=== PATIENT | male | born 1950 | race Caucasian/White ===

== ENCOUNTER 2016-07-26 15:56 | Emergency (ER) | payer OTHER, MEDICARE ==
[~2016-07-26] VITALS: Ht 167.6 cm; Wt 117.9 kg
[~2016-07-26 15:56] MED LIST: ALLERGY RELIEF4 M1 PO; ANTIVERT/2525 M1 PO; ASPIRIN-DIPYRI1 EACH PO; CALCIUM 250+D1 EACH PO; CLARITIN10 MG PO; CLOPIDOGREL75 MG PO; CPAP; CYCLOBENZAPRINE10 MG PO; DELTASONE1 MG PO; DELTASONE2.5 MG PO; DOXYCYCLINE MO100 M1 PO; DRISDOL50000 IU PO; FISH OIL500 M1 PO; FLOMAX0.4 MG PO; GLUCOTROL XL5 MG PO; IBU800 M1 PO; IRON325 M3 PO; LASIX20 MG PO; LEVOTHYROXIN0.025 MG PO; LYRICA100 M1 PO; Lopressor25 MG PO; MEDROL DOSEPAK4 MG PO; METRONIDAZOLE0.752 T; NAPROSYN500 MG PO; NORCO 5-325 TA1 EACH PO; NORVASC5 MG PO; PRAVASTATIN SOD80 MG PO; PROSCAR5 M1 PO; TENSION HEADAC1 EACH PO; ZESTRIL10 MG PO; ZESTRIL20 MG PO; ZYLOPRIM100 MG PO
[2016-07-26 16:44] LABS: BASO % 0.3 % (0.0-1.0); EOS # 0.3 10*3/uL (0.0-0.4); EOS % 4.3 % (1.0-4.0); HEMATOCRIT 46.5 % (42.0-52.0); HEMOGLOBIN 16.1 g/dl (14.0-18.0); LYMPH # 1.2 10*3/uL (1.3-4.4); LYMPH % 15.8 % (27.0-41.0); MEAN CELL VOLUME 95.1 fl (80.0-94.0); MEAN CORPUSCULAR HGB 32.9 pg (27.0-31.0); MEAN CORPUSCULAR HGB CONC 34.6 g/dl (33.0-37.0); MONO # 0.4 10*3/uL (0.1-1.0); MONO % 5.6 % (3.0-9.0); NEUT # 5.7 10*3/uL (2.3-7.9); NEUT % 73.6 % (47.0-73.0); PLATELET COUNT AUTOMATED 278 10*3/uL (130-400); RED BLOOD COUNT 4.89 10*6/uL (4.50-5.90); RED CELL DISTRI WIDTH 13.9 % (0-14.5); WHITE BLOOD COUNT 7.7 10*3/uL (4.8-10.8)
[2016-07-26 16:58] LABS: ALKALINE PHOSPHATASE 101 U/L (45-117); BILIRUBIN, TOTAL 0.8 mg/dl (0.2-1.0); BUN 27 mg/dl (7-24); CARBON DIOXIDE 21 mmol/L (21-32); CHLORIDE 104 mmol/L (98-107); EST GLOM FILT AFRICAN AMERICAN > 60 ml/min; GLUCOSE 175 mg/dL (65-99); POTASSIUM 4.1 mmol/L (3.5-5.1); SGOT/AST 44 IU/L (3-35); SGPT/ALT 40 U/L (12-78); SODIUM 136 mmol/L (136-145); TOTAL PROTEIN 8.4 gm/dL (6.4-8.2)
[2016-07-26 17:16] LABS: BILIRUBIN NEGATIVE (NEGATIVE); BLOOD TRACE-LYSED (NEGATIVE); CLARITY CLEAR (CLEAR); COLOR YELLOW (YELLOW); GLUCOSE TRACE (NEGATIVE); KETONE NEGATIVE (NEGATIVE); LEUKO ESTERASE NEGATIVE (NEGATIVE); NITRITE NEGATIVE (NEGATIVE); PROTEIN TRACE (NEGATIVE); SPECIFIC GRAVITY 1.025 (1.005-1.030); UROBILINOGEN 0.2 E.U./dl (0.2-1.0)
[2016-07-26 17:22] LABS: RBC 0-2 rbc/hpf (0-2)
[2016-07-26 17:23] LABS: URINE REFLEX COMMENT NO (NO)
[2016-07-26] MEDS ORDERED: LOMOTIL 0.025 M1 TA1 PO (19:07)
== END 2016-07-26 19:18 | disposition home or self-care (01) ==
LOC: ED 15:56
PROVIDERS: Physician Assistant
DX: R19.7 Diarrhea, unspecified (principal); Z79.899 Other long term (current) drug therapy

== ENCOUNTER 2016-08-06 16:54 | Inpatient (IN) | payer OTHER ==
[~2016-08-06] VITALS: Ht 167.6 cm; Wt 112.7 kg
--- NOTE | ~2016-08-06 | O ---
[place], [place] OPERATIVE NOTE NAME: KEON THOMAS UNIT #: [id number] ROOM: 403 DOCTOR: NASREEN ACOSTA MD BIRTHDATE: [birth year] DOS: HISTORY OF PRESENT ILLNESS: The patient has presented with nausea, vomiting, undergoing investigation. Epigastric distress. PROCEDURE: Today's procedure part of investigation is panendoscopy plus biopsy and bezoar fracture. PREMEDICATION: Versed and Diprivan. SCOPE: Olympus forward-viewing gastroscope Q10 video. REPORT: After putting the patient in the left lateral position and after application of lubricant to the scope, the scope was introduced. Thereafter, under direct visualization, I advanced through the length of the esophagus without difficulty. Small hiatal hernia was noticed. Gastric pouch was entered. In greater curvature, there is elongated gastric bezoar which is food bezoar with pedicles attached to the greater curvature was identified. The pedicle was fractured and bezoar mobilized to free position. Pyloric ring was entered. Duodenal bulb, second and third part within normal limits withdrawn. Biopsy from antrum was obtained from gastritis. The patient extubated, tolerated procedure well. IMPRESSION: Gastric bezoar secondary to a diabetic gastroparesis, gastritis, status post biopsy. PLAN ON DISCUSSION: We are going to keep him on PPI. We are going to organize addition of prokinetic starting from Reglan 2.5 mg daily. We are going to give him a couple of days of clear liquid to allow the gastric pouch to dispose of retention that already has and by then gastric motility has been improved under the influence of the metoclopramide and then we are going to keep him on soft diabetic diet, perhaps it would be suffice to be managed with 1600 ADA soft low residue. [place], [place] OPERATIVE NOTE NAME: KEON THOMAS UNIT #: [id number] ROOM: 403 DOCTOR: NASREEN ACOSTA MD BIRTHDATE: [birth year] NASREEN ACOSTA MD CM:OPRECORD:OPERATIVE NOTE [id number] NASREEN ACOSTA MD 08/08/16 1341 interface
--- NOTE | ~2016-08-06 | O ---
[place], [place] OPERATIVE NOTE NAME: KEON THOMAS UNIT #: [id number] ROOM: 403 DOCTOR: NASREEN ACOSTA MD BIRTHDATE: [birth year] DOS: HISTORY OF PRESENT ILLNESS: The patient has presented with chief complaint of nausea, vomiting, diarrhea several times visit to the Emergency Room. The patient had to be admitted for definitive workup. PAST MEDICAL HISTORY: Associated morbid obesity, cerebrovascular accident, gout. PAST SURGICAL HISTORY: Hyperlipidemia, hypertension, diabetes mellitus, BPH. SOCIAL HISTORY: Nonsmoker, nonalcohol consumer. FAMILY HISTORY: Noncontributory. ALLERGIES: No medication. MEDICATION: List has been reviewed. The patient was found to be on glipizide b.i.d. and this could be the culprit as well. PROCEDURE: Today's procedure part of investigation is panendoscopy and colonoscopy. PREMEDICATION: Versed and Diprivan. SCOPE: Olympus forward-viewing colonoscope 10L video. REPORT: After putting the patient in the left lateral position and after application of lubricant to rectal pouch and digital examination. Scope was introduced; thereafter, under direct visualization, advanced through the length of colon without difficulty. Base of the cecum explored, appendiceal orifice identified, and ileocecal valve was defined. Sessile polypoid lesion in splenic flexure with piecemeal polypectomy was removed. Diverticulosis of mild degree was identified, mostly expressed in the left side of the colon. Air was suctioned out. The patient was extubated, tolerated procedure well. IMPRESSION: Diverticulosis, sessile polypoid lesion in splenic flexure, status post piecemeal polypectomy. PLAN AND DISCUSSION: At this time, as an etiology for his diarrhea we are going to consider Glucotrol to be the culprit. Glucotrol is going to be removed. DiaBeta is going to be added 2.5 mg daily and his blood sugar is going to be monitored if needed. We are going to increase to 5 mg in 1 week or so. [place], [place] OPERATIVE NOTE NAME: KEON THOMAS UNIT #: [id number] ROOM: 403 DOCTOR: NASREEN ACOSTA MD BIRTHDATE: [birth year] NASREEN ACOSTA MD CM:SAMMY:OPERATIVE NOTE 1116 40 NASREEN ACOSTA MD 08/08/16 1341 interface
[~2016-08-06 16:54] MED LIST changes: +LOMOTIL 0.025 M1 TA1 PO
[2016-08-06 17:21] VITALS: BP 63/29
[2016-08-06 17:31] VITALS: BP 101/47
[2016-08-06 18:10] LABS: HEMATOCRIT 48.8 % (42.0-52.0); HEMOGLOBIN 16.9 g/dl (14.0-18.0); MEAN CELL VOLUME 95.7 fl (80.0-94.0); MEAN CORPUSCULAR HGB 33.1 pg (27.0-31.0); MEAN CORPUSCULAR HGB CONC 34.6 g/dl (33.0-37.0); MEAN PLATELET VOLUME 9.3 fl (9.6-12.3); PLATELET COUNT AUTOMATED 243 10*3/uL (130-400); RED CELL DISTRI WIDTH 13.4 % (0-14.5)
[2016-08-06 18:24] LABS: PROTHROMBIN TIME 10.6 SECONDS (9.0-12.4)
[2016-08-06 18:25] LABS: ALBUMIN 4.2 gm/dl (3.1-4.5); ALKALINE PHOSPHATASE 92 U/L (45-117); BILIRUBIN, TOTAL 0.6 mg/dl (0.2-1.0); BUN 15 mg/dl (7-24); C-REACTIVE PROTEIN 0.71 MG/DL (0-0.3); CARBON DIOXIDE 26 mmol/L (21-32); CHLORIDE 105 mmol/L (98-107); CKMB 2.3 ng/ml (0.5-3.6); CPK 119 U/L (39-308); EST GLOM FILT AFRICAN AMERICAN > 60 ml/min; GLUCOSE 146 mg/dL (65-99); POTASSIUM 4.4 mmol/L (3.5-5.1); SGOT/AST 42 IU/L (3-35); SGPT/ALT 43 U/L (12-78); SODIUM 143 mmol/L (136-145); TROPONIN I < 0.015 ng/ml (<0.045)
[2016-08-06 18:35] VITALS: BP 124/57
[2016-08-06 18:37] LABS: ATYPICAL LYMPHS 1 % (0-0); EOSINOPHIL # 0.6 10*3/uL (0-0.4); EOSINOPHILS 2 % (1-4); LYMPHOCYTE # 2.8 10*3/uL (1.3-4.4); MONOCYTE # 0.3 10*3/uL (0.1-1.0); NEUTROPHIL # 27.3 10*3/uL (2.3-7.9); NEUTROPHILS 88 % (47-73); TOTAL CELLS COUNTED 100 #CELLS
[2016-08-06 18:38] LABS: PLATELET SUFFICIENCY NORMAL (NORMAL); POLYCHROMASIA SLIGHT
[2016-08-06 18:58] VITALS: BP 161/60
[2016-08-06 19:38] VITALS: BP 162/68
[2016-08-06 20:03] LABS: LA>2 REFLEX 2 HR DRAW NOW
[2016-08-06 20:25] LABS: LA>2 RFLX FOLLOW UP AT 2 HRS 2.3 mmol/L (0.4-2.0)
[2016-08-06 20:30] VITALS: BP 172/64
[2016-08-06 22:14] LABS: LA>2 REFLEX 4 HR DRAW NOW
[2016-08-07] VITALS: BP 136/69
[2016-08-07 00:45] LABS: BASO # 0.1 10*3/uL (0.0-0.1); BASO % 0.4 % (0.0-1.0); EOS # 1.2 10*3/uL (0.0-0.4); EOS % 8.6 % (1.0-4.0); IG # 0.1 10*3/uL (0.0-0.1); LYMPH # 1.6 10*3/uL (1.3-4.4); LYMPH % 11.5 % (27.0-41.0); MEAN CELL VOLUME 94.8 fl (80.0-94.0); MEAN CORPUSCULAR HGB 32.9 pg (27.0-31.0); MEAN CORPUSCULAR HGB CONC 34.7 g/dl (33.0-37.0); MEAN PLATELET VOLUME 9.2 fl (9.6-12.3); MONO # 0.6 10*3/uL (0.1-1.0); MONO % 3.9 % (3.0-9.0); NEUT # 10.7 10*3/uL (2.3-7.9); NEUT % 75.1 % (47.0-73.0); PLATELET COUNT AUTOMATED 178 10*3/uL (130-400); RED BLOOD COUNT 4.23 10*6/uL (4.50-5.90); RED CELL DISTRI WIDTH 13.5 % (0-14.5); WHITE BLOOD COUNT 14.3 10*3/uL (4.8-10.8)
[2016-08-07 00:46] LABS: HEMATOCRIT 40.1 % (42.0-52.0); HEMOGLOBIN 13.9 g/dl (14.0-18.0)
[2016-08-07 01:02] LABS: BUN 17 mg/dl (7-24); CARBON DIOXIDE 24 mmol/L (21-32); CHLORIDE 108 mmol/L (98-107); EST GLOM FILT AFRICAN AMERICAN > 60 ml/min; GLUCOSE 122 mg/dL (65-99); POTASSIUM 4.2 mmol/L (3.5-5.1); SODIUM 143 mmol/L (136-145)
[2016-08-07 01:05] LABS: CKMB 1.9 ng/ml (0.5-3.6); CPK 97 U/L (39-308)
[2016-08-07 01:06] LABS: TROPONIN I < 0.015 ng/ml (<0.045)
[2016-08-07 04:00] VITALS: BP 135/70
[2016-08-07 06:18] LABS: BASO # 0.1 10*3/uL (0.0-0.1); BASO % 0.6 % (0.0-1.0); EOS # 1.5 10*3/uL (0.0-0.4); EOS % 15.6 % (1.0-4.0); HEMATOCRIT 37.9 % (42.0-52.0); HEMOGLOBIN 12.9 g/dl (14.0-18.0); LYMPH # 1.9 10*3/uL (1.3-4.4); LYMPH % 20.4 % (27.0-41.0); MEAN CELL VOLUME 95.9 fl (80.0-94.0); MEAN CORPUSCULAR HGB 32.7 pg (27.0-31.0); MEAN PLATELET VOLUME 9.8 fl (9.6-12.3); MONO # 0.6 10*3/uL (0.1-1.0); NEUT # 5.4 10*3/uL (2.3-7.9); NEUT % 57.1 % (47.0-73.0); PLATELET COUNT AUTOMATED 176 10*3/uL (130-400); RED BLOOD COUNT 3.95 10*6/uL (4.50-5.90); RED CELL DISTRI WIDTH 13.7 % (0-14.5); WHITE BLOOD COUNT 9.4 10*3/uL (4.8-10.8)
[2016-08-07 06:34] LABS: CKMB 1.4 ng/ml (0.5-3.6); CPK 84 U/L (39-308)
[2016-08-07 06:35] LABS: HEMOGLOBIN A1c 6.2 % (4.8-5.6)
[2016-08-07 06:39] LABS: ALBUMIN 3.1 gm/dl (3.1-4.5); BILIRUBIN, TOTAL 0.5 mg/dl (0.2-1.0); BUN 18 mg/dl (7-24); CARBON DIOXIDE 26 mmol/L (21-32); CHLORIDE 110 mmol/L (98-107); CHOLESTEROL 113 mg/dL (<200); EST GLOM FILT AFRICAN AMERICAN > 60 ml/min; FREE T4 0.86 ng/dl (0.76-1.46); GLUCOSE 106 mg/dL (65-99); HDL CHOLESTEROL 34 mg/dl (40-60); LDL CHOLESTEROL 23 mg/dL (9-159); MAGNESIUM 1.9 mg/dL (1.5-2.1); PHOSPHOROUS 2.8 mg/dL (2.5-4.9); POTASSIUM 4.2 mmol/L (3.5-5.1); SGOT/AST 29 IU/L (3-35); SGPT/ALT 30 U/L (12-78); SODIUM 145 mmol/L (136-145); TOTAL PROTEIN 6.1 gm/dL (6.4-8.2); TRIGLYCERIDES 279 mg/dl (<150); VLDL CHOLESTEROL 56 mg/dL (6-40)
[2016-08-07 06:45] LABS: ALKALINE PHOSPHATASE 60 U/L (45-117)
[2016-08-07 06:47] LABS: TROPONIN I < 0.015 ng/ml (<0.045)
[2016-08-07 07:09] LABS: PROTHROMBIN TIME 10.7 SECONDS (9.0-12.4)
[2016-08-07 07:16] LABS: VITAMIN D, 25-HYDROXY 19.8 ng/mL (30-100)
[2016-08-07 07:17] LABS: FOLIC ACID 7.26 ng/mL (>5.38)
[2016-08-07 08:00] VITALS: BP 151/58
[2016-08-07 10:32] LABS: BILIRUBIN NEGATIVE (NEGATIVE); BLOOD NEGATIVE (NEGATIVE); CLARITY CLEAR (CLEAR); COLOR YELLOW (YELLOW); GLUCOSE NEGATIVE (NEGATIVE); KETONE NEGATIVE (NEGATIVE); LEUKO ESTERASE NEGATIVE (NEGATIVE); NITRITE NEGATIVE (NEGATIVE); PROTEIN NEGATIVE (NEGATIVE); SPECIFIC GRAVITY >= 1.030 (1.005-1.030); UROBILINOGEN 0.2 E.U./dl (0.2-1.0)
[2016-08-07 10:42] LABS: BACTERIA TRACE
[2016-08-07 10:44] LABS: RBC 0-2 rbc/hpf (0-2)
[2016-08-07 10:45] LABS: URINE REFLEX COMMENT NO (NO)
[2016-08-07 12:00] VITALS: BP 159/81
[2016-08-07 12:09] LABS: CKMB 1.4 ng/ml (0.5-3.6); CPK 86 U/L (39-308)
[2016-08-07 12:10] LABS: TROPONIN I < 0.015 ng/ml (<0.045)
[2016-08-07 16:00] VITALS: BP 152/58
[2016-08-07 20:00] VITALS: BP 132/70
[2016-08-08] VITALS (12 sets, daily range): BP systolic 108–196; BP diastolic 69–92
[2016-08-09] VITALS: BP 162/74
[2016-08-09 04:00] VITALS: BP 150/82
[2016-08-09 08:00] VITALS: BP 164/86
[2016-08-09] MEDS ORDERED: OMEPRAZOLE20 M2 PO (11:30)
== END 2016-08-09 11:55 | disposition home or self-care (01) | DRG 871 ==
LOC: ED 16:54 → EDHOLD 18:50 → 4E 18:50
PROVIDERS: Emergency Medicine; Internal Medicine; Internal Medicine Gastroenterology; Student in an Organized Health Care Education/Training Program
DX: A41.9 Sepsis, unspecified organism (principal); N17.0 Acute kidney failure with tubular necrosis; K52.9 Noninfective gastroenteritis and colitis, unspecified; R65.20 Severe sepsis without septic shock; E11.22 Type 2 diabetes mellitus with diabetic chronic kidney disease; I12.9 Hypertensive chronic kidney disease with stage 1 through stage 4 chronic kidney disease, or unspecified chronic kidney disease; N18.9 Chronic kidney disease, unspecified; Z86.73 Personal history of transient ischemic attack (TIA), and cerebral infarction without residual deficits; E03.9 Hypothyroidism, unspecified; G47.33 Obstructive sleep apnea (adult) (pediatric); Z82.49 Family history of ischemic heart disease and other diseases of the circulatory system; R79.82 Elevated C-reactive protein (CRP); E78.5 Hyperlipidemia, unspecified; M10.9 Gout, unspecified; R42 Dizziness and giddiness; J30.2 Other seasonal allergic rhinitis; N40.0 Benign prostatic hyperplasia without lower urinary tract symptoms; K57.30 Diverticulosis of large intestine without perforation or abscess without bleeding; D12.3 Benign neoplasm of transverse colon; K44.9 Diaphragmatic hernia without obstruction or gangrene; E11.43 Type 2 diabetes mellitus with diabetic autonomic (poly)neuropathy; K31.84 Gastroparesis; T18.2XXA Foreign body in stomach, initial encounter; K29.70 Gastritis, unspecified, without bleeding

== ENCOUNTER 2016-08-17 12:46 | Emergency (ER) | payer MEDICARE, OTHER ==
[~2016-08-17] VITALS: Ht 167.6 cm; Wt 113.4 kg
[~2016-08-17 12:46] MED LIST changes: +OMEPRAZOLE20 M2 PO
[2016-08-17 13:29] LABS: BASO # 0.1 10*3/uL (0.0-0.1); BASO % 0.6 % (0.0-1.0); EOS # 0.8 10*3/uL (0.0-0.4); EOS % 8.9 % (1.0-4.0); HEMATOCRIT 50.9 % (42.0-52.0); HEMOGLOBIN 17.3 g/dl (14.0-18.0); LYMPH # 0.7 10*3/uL (1.3-4.4); LYMPH % 7.6 % (27.0-41.0); MEAN CELL VOLUME 97.5 fl (80.0-94.0); MEAN CORPUSCULAR HGB 33.1 pg (27.0-31.0); MONO # 0.6 10*3/uL (0.1-1.0); MONO % 7.2 % (3.0-9.0); NEUT # 6.8 10*3/uL (2.3-7.9); NEUT % 75.6 % (47.0-73.0); PLATELET COUNT AUTOMATED 263 10*3/uL (130-400); RED BLOOD COUNT 5.22 10*6/uL (4.50-5.90); RED CELL DISTRI WIDTH 14.3 % (0-14.5); WHITE BLOOD COUNT 8.9 10*3/uL (4.8-10.8)
[2016-08-17 13:45] LABS: ALBUMIN 4.3 gm/dl (3.1-4.5); ALKALINE PHOSPHATASE 98 U/L (45-117); BILIRUBIN, TOTAL 0.7 mg/dl (0.2-1.0); BUN 12 mg/dl (7-24); CHLORIDE 104 mmol/L (98-107); EST GLOM FILT AFRICAN AMERICAN > 60 ml/min; GLUCOSE 194 mg/dL (65-99); POTASSIUM 4.2 mmol/L (3.5-5.1); SGOT/AST 68 IU/L (3-35); SGPT/ALT 66 U/L (12-78); SODIUM 141 mmol/L (136-145); TOTAL PROTEIN 8.3 gm/dL (6.4-8.2)
[2016-08-17 14:04] LABS: CARBON DIOXIDE 25 mmol/L (21-32)
[2016-08-17] MEDS ORDERED: ZOFRAN4 MG PO (15:07)
[2016-08-17 15:26] LABS: LA>2 REFLEX 2 HR DRAW NOW
== END 2016-08-17 15:21 | disposition home or self-care (01) ==
LOC: ED 12:46
PROVIDERS: Nurse Practitioner Family
DX: B34.9 Viral infection, unspecified (principal); N40.0 Benign prostatic hyperplasia without lower urinary tract symptoms; I12.9 Hypertensive chronic kidney disease with stage 1 through stage 4 chronic kidney disease, or unspecified chronic kidney disease; N18.9 Chronic kidney disease, unspecified; M10.9 Gout, unspecified; E78.5 Hyperlipidemia, unspecified; E03.9 Hypothyroidism, unspecified; G47.33 Obstructive sleep apnea (adult) (pediatric); E55.9 Vitamin D deficiency, unspecified; Z86.73 Personal history of transient ischemic attack (TIA), and cerebral infarction without residual deficits; Z98.890 Other specified postprocedural states; Z79.899 Other long term (current) drug therapy

== ENCOUNTER 2016-08-20 21:21 | Emergency (ER) | payer MEDICARE, OTHER ==
[~2016-08-20] VITALS: Ht 167.6 cm; Wt 112.5 kg
[~2016-08-20 21:21] MED LIST changes: +ZOFRAN4 MG PO
[2016-08-20] MEDS ORDERED: FISH OIL CONC1000 M1 PO (21:30)
[2016-08-20] MEDS ORDERED: DELTASONE1 MG PO (21:30)
[2016-08-20] MEDS ORDERED: RESTORE TEARS30 ML OP (21:30)
[2016-08-20] MEDS ORDERED: NAPROSYN500 MG PO (21:31)
[2016-08-20] MEDS ORDERED: FINASTERIDE5 M1 PO (21:31)
[2016-08-20] MEDS ORDERED: CHEST CONGESTI400 MG PO (21:31)
[2016-08-20] MEDS ORDERED: LASIX20 MG PO (21:31)
[2016-08-20] MEDS ORDERED: GLIPIZIDE XL5 M1 PO (21:32)
[2016-08-20] MEDS ORDERED: LEVOTHYROXIN0.025 MG PO (21:32)
[2016-08-20] MEDS ORDERED: CLOPIDOGREL75 MG PO (21:32)
[2016-08-20] MEDS ORDERED: TENSION HEADAC1 EACH PO (21:33)
[2016-08-20] MEDS ORDERED: LISINOPRIL10 M1 PO (21:33)
[2016-08-20] MEDS ORDERED: TAMSULOSIN HCL0.4 MG PO (21:33)
[2016-08-20] MEDS ORDERED: ROSADAN 0.75% TP (21:34)
[2016-08-20] MEDS ORDERED: ZYLOPRIM100 MG PO (21:34)
[2016-08-20] MEDS ORDERED: Lopressor25 MG PO (21:35)
[2016-08-20] MEDS ORDERED: CHILDREN'S CLEA10 MG PO (21:35)
[2016-08-20] MEDS ORDERED: PRAVACHOL80 M1 PO (21:35)
[2016-08-20] MEDS ORDERED: LYRICA100 M1 PO (21:36)
[2016-08-20 22:08] LABS: BASO % 0.2 % (0.0-1.0); EOS # 0.7 10*3/uL (0.0-0.4); HEMATOCRIT 45.9 % (42.0-52.0); HEMOGLOBIN 15.8 g/dl (14.0-18.0); LYMPH # 1.7 10*3/uL (1.3-4.4); LYMPH % 25.3 % (27.0-41.0); MEAN CELL VOLUME 95.6 fl (80.0-94.0); MEAN CORPUSCULAR HGB 32.9 pg (27.0-31.0); MEAN CORPUSCULAR HGB CONC 34.4 g/dl (33.0-37.0); MEAN PLATELET VOLUME 8.9 fl (9.6-12.3); MONO # 0.8 10*3/uL (0.1-1.0); MONO % 11.7 % (3.0-9.0); NEUT # 3.4 10*3/uL (2.3-7.9); NEUT % 52.3 % (47.0-73.0); PLATELET COUNT AUTOMATED 308 10*3/uL (130-400); RED CELL DISTRI WIDTH 13.7 % (0-14.5); WHITE BLOOD COUNT 6.6 10*3/uL (4.8-10.8)
[2016-08-20 22:36] LABS: ALBUMIN 4.1 gm/dl (3.1-4.5); ALKALINE PHOSPHATASE 92 U/L (45-117); BILIRUBIN, TOTAL 0.7 mg/dl (0.2-1.0); BUN 15 mg/dl (7-24); CARBON DIOXIDE 24 mmol/L (21-32); CHLORIDE 105 mmol/L (98-107); EST GLOM FILT AFRICAN AMERICAN > 60 ml/min; GLUCOSE 125 mg/dL (65-99); POTASSIUM 4.3 mmol/L (3.5-5.1); SGOT/AST 44 IU/L (3-35); SGPT/ALT 46 U/L (12-78); SODIUM 138 mmol/L (136-145); TOTAL PROTEIN 8.1 gm/dL (6.4-8.2)
[2016-08-21] MEDS ORDERED: QUESTRAN LIGHT4 GM PO (00:29)
[2016-08-21] MEDS ORDERED: GAS RELIEF MAX PO (00:32)
== END 2016-08-21 00:36 | disposition home or self-care (01) ==
LOC: ED 21:21
PROVIDERS: Nurse Practitioner Family
DX: K52.9 Noninfective gastroenteritis and colitis, unspecified (principal); E78.5 Hyperlipidemia, unspecified; E03.9 Hypothyroidism, unspecified; I12.9 Hypertensive chronic kidney disease with stage 1 through stage 4 chronic kidney disease, or unspecified chronic kidney disease; N18.9 Chronic kidney disease, unspecified; M10.9 Gout, unspecified; Z86.73 Personal history of transient ischemic attack (TIA), and cerebral infarction without residual deficits; Z79.899 Other long term (current) drug therapy

== ENCOUNTER → 2016-09-21 | Outpatient (CLI) | payer OTHER, MEDICARE ==
[~2016-09-21] MED LIST changes: +CHEST CONGESTI400 MG PO; +CHILDREN'S CLEA10 MG PO; +FINASTERIDE5 M1 PO; +FISH OIL CONC1000 M1 PO; +GAS RELIEF MAX PO; +GLIPIZIDE XL5 M1 PO; +LISINOPRIL10 M1 PO; +PRAVACHOL80 M1 PO; +QUESTRAN LIGHT4 GM PO; +RESTORE TEARS30 ML OP; +ROSADAN 0.75% TP; +TAMSULOSIN HCL0.4 MG PO
== END | disposition home or self-care (01) ==
LOC: US 13:13
DX: N28.1 Cyst of kidney, acquired (principal); Z96.0 Presence of urogenital implants

== ENCOUNTER 2017-06-26 11:40 | Emergency (ER) | payer MEDICARE, OTHER ==
[~2017-06-26] VITALS: Ht 167.6 cm; Wt 108.0 kg
[2017-06-26 12:03] LABS: BASO # 0.1 10*3/uL (0.0-0.1); BASO % 0.5 % (0.0-1.0); EOS % 0.4 % (1.0-4.0); HEMATOCRIT 44.8 % (42.0-52.0); HEMOGLOBIN 15.8 g/dl (14.0-18.0); LYMPH # 1.1 10*3/uL (1.3-4.4); LYMPH % 10.5 % (27.0-41.0); MEAN CELL VOLUME 93.1 fl (80.0-94.0); MEAN CORPUSCULAR HGB 32.8 pg (27.0-31.0); MEAN CORPUSCULAR HGB CONC 35.3 g/dl (33.0-37.0); MEAN PLATELET VOLUME 9.1 fl (9.6-12.3); MONO # 0.3 10*3/uL (0.1-1.0); MONO % 3.3 % (3.0-9.0); NEUT # 8.7 10*3/uL (2.3-7.9); NEUT % 84.9 % (47.0-73.0); PLATELET COUNT AUTOMATED 223 10*3/uL (130-400); RED BLOOD COUNT 4.81 10*6/uL (4.50-5.90); RED CELL DISTRI WIDTH 13.3 % (0-14.5); WHITE BLOOD COUNT 10.3 10*3/uL (4.8-10.8)
[2017-06-26 12:12] LABS: INTERNATIONAL NORM RATIO 0.9 (2.0-3.5)
[2017-06-26 12:22] LABS: ALBUMIN 4.3 gm/dl (3.1-4.5); ALKALINE PHOSPHATASE 99 U/L (45-117); BUN 33 mg/dl (7-24); CHLORIDE 103 mmol/L (98-107); CREATININE 1.07 mg/dL (0.70-1.30); POTASSIUM 4.2 mmol/L (3.5-5.1); SGOT/AST 32 IU/L (3-35); SGPT/ALT 34 U/L (12-78); SODIUM 135 mmol/L (136-145); TOTAL PROTEIN 8.2 gm/dL (6.4-8.2)
== END 2017-06-26 15:36 | disposition short-term general hospital (02) ==
LOC: ED 11:40
PROVIDERS: Emergency Medicine
DX: T78.3XXA Angioneurotic edema, initial encounter (principal); I12.9 Hypertensive chronic kidney disease with stage 1 through stage 4 chronic kidney disease, or unspecified chronic kidney disease; N18.9 Chronic kidney disease, unspecified; E03.9 Hypothyroidism, unspecified; M10.9 Gout, unspecified; E78.5 Hyperlipidemia, unspecified; Z86.73 Personal history of transient ischemic attack (TIA), and cerebral infarction without residual deficits; Z79.899 Other long term (current) drug therapy

== ENCOUNTER 2017-09-13 04:05 | Inpatient (IN) | payer MEDICARE, OTHER ==
[~2017-09-13] VITALS: Ht 167.6 cm; Wt 102.3 kg
[2017-09-13] VITALS (9 sets, daily range): BP systolic 111–166; BP diastolic 57–90
[2017-09-13 07:06] LABS: BASO % 0.3 % (0.0-1.0); EOS # 0.1 10*3/uL (0.0-0.4); EOS % 0.8 % (1.0-4.0); HEMATOCRIT 41.9 % (42.0-52.0); HEMOGLOBIN 14.3 g/dl (14.0-18.0); LYMPH % 9.5 % (27.0-41.0); MEAN CELL VOLUME 96.8 fl (80.0-94.0); MEAN CORPUSCULAR HGB CONC 34.1 g/dl (33.0-37.0); MEAN PLATELET VOLUME 9.3 fl (9.6-12.3); MONO # 0.5 10*3/uL (0.1-1.0); MONO % 5.4 % (3.0-9.0); NEUT # 8.4 10*3/uL (2.3-7.9); NEUT % 83.6 % (47.0-73.0); PLATELET COUNT AUTOMATED 189 10*3/uL (130-400); RED BLOOD COUNT 4.33 10*6/uL (4.50-5.90); RED CELL DISTRI WIDTH 13.5 % (0-14.5); WHITE BLOOD COUNT 10.1 10*3/uL (4.8-10.8)
[2017-09-13 07:21] LABS: ALBUMIN 4.1 gm/dl (3.1-4.5); ALKALINE PHOSPHATASE 78 U/L (45-117); BUN 28 mg/dl (7-24); CHLORIDE 109 mmol/L (98-107); CREATININE 0.87 mg/dL (0.70-1.30); POTASSIUM 4.2 mmol/L (3.5-5.1); SGOT/AST 23 IU/L (3-35); SGPT/ALT 31 U/L (12-78); SODIUM 140 mmol/L (136-145); TOTAL PROTEIN 7.3 gm/dL (6.4-8.2)
[2017-09-13] MEDS ORDERED: HUMALOG100 UNIT/2 SQ (08:25)
[2017-09-14] VITALS: BP 169/70
[2017-09-14 04:01] VITALS: BP 147/52
[2017-09-14 06:14] LABS: BASO % 0.1 % (0.0-1.0); HEMATOCRIT 42.6 % (42.0-52.0); HEMOGLOBIN 14.9 g/dl (14.0-18.0); LYMPH % 10.1 % (27.0-41.0); MEAN CELL VOLUME 94.5 fl (80.0-94.0); MEAN PLATELET VOLUME 10.2 fl (9.6-12.3); MONO # 0.4 10*3/uL (0.1-1.0); MONO % 3.9 % (3.0-9.0); NEUT # 8.5 10*3/uL (2.3-7.9); NEUT % 85.3 % (47.0-73.0); PLATELET COUNT AUTOMATED 230 10*3/uL (130-400); RED BLOOD COUNT 4.51 10*6/uL (4.50-5.90); RED CELL DISTRI WIDTH 13.2 % (0-14.5)
[2017-09-14 06:37] LABS: ALBUMIN 3.8 gm/dl (3.1-4.5); BUN 22 mg/dl (7-24); CHLORIDE 105 mmol/L (98-107); CREATININE 0.88 mg/dL (0.70-1.30); SGOT/AST 17 IU/L (3-35); SGPT/ALT 26 U/L (12-78); SODIUM 139 mmol/L (136-145); TOTAL PROTEIN 7.4 gm/dL (6.4-8.2)
[2017-09-14 06:44] LABS: ALKALINE PHOSPHATASE 75 U/L (45-117); CHOLESTEROL 176 mg/dL (<200); HDL CHOLESTEROL 59 mg/dl (40-60); LDL CHOLESTEROL 104 mg/dL (9-159); PHOSPHOROUS 2.9 mg/dL (2.5-4.9); THYROID STIM HORMONE (HS) 0.495 uIU/ml (0.358-4.75); TRIGLYCERIDES 65 mg/dl (<150); VLDL CHOLESTEROL 13 mg/dL (6-40)
[2017-09-14 08:00] VITALS: BP 146/74
[2017-09-14 10:20] LABS: VITAMIN D, 25-HYDROXY 33.9 ng/mL (30-100)
== END 2017-09-14 08:15 | disposition left against medical advice (07) | DRG 916 ==
LOC: ED 04:05 → ICCU 06:49 → EDHOLD 06:49 → ICCU 06:56
PROVIDERS: Emergency Medicine Emergency Medical Services; Internal Medicine Hospice and Palliative Medicine
PROC: 5A09357 Assistance with Respiratory Ventilation, Less than 24 Consecutive Hours, Continuous Positive Airway Pressure (ICD-10-PCS; principal; 2017-09-13)
DX: T78.3XXA Angioneurotic edema, initial encounter (principal); N18.3 Chronic kidney disease, stage 3 (moderate); D75.89 Other specified diseases of blood and blood-forming organs; Z53.21 Procedure and treatment not carried out due to patient leaving prior to being seen by health care provider; R00.1 Bradycardia, unspecified; M1A.9XX0 Chronic gout, unspecified, without tophus (tophi); E78.5 Hyperlipidemia, unspecified; M54.16 Radiculopathy, lumbar region; E03.9 Hypothyroidism, unspecified; R79.82 Elevated C-reactive protein (CRP); G47.33 Obstructive sleep apnea (adult) (pediatric); I12.9 Hypertensive chronic kidney disease with stage 1 through stage 4 chronic kidney disease, or unspecified chronic kidney disease; N40.0 Benign prostatic hyperplasia without lower urinary tract symptoms; Z86.73 Personal history of transient ischemic attack (TIA), and cerebral infarction without residual deficits; Z82.49 Family history of ischemic heart disease and other diseases of the circulatory system; Z82.5 Family history of asthma and other chronic lower respiratory diseases; Z79.899 Other long term (current) drug therapy; Z79.02 Long term (current) use of antithrombotics/antiplatelets

== ENCOUNTER 2017-10-24 12:04 | Emergency (ER) | payer MEDICARE, OTHER ==
[~2017-10-24] VITALS: Ht 170.1 cm; Wt 81.6 kg
--- NOTE | ~2017-10-24 | EKG ---
[place], [place] ELECTROCARDIOGRAM REPORT NAME: KEON THOMAS UNIT #: [id number] ROOM: DOCTOR: ARA ALICEA MD BIRTHDATE: [birth year] DOS: 10/24/2017 TIME: 1248 hours. Normal sinus rhythm at 66 beats per minute. Moderate left axis deviation. Nonspecific T-wave changes in lateral leads. Minimal criteria for LVH. No previous tracing is available for comparison. ARA ALICEA MD CM:EKGRPT:ELECTROCARDIOGRAM REPORT [id number] ARA ALICEA MD
[~2017-10-24 12:04] MED LIST changes: +HUMALOG100 UNIT/2 SQ
[2017-10-24 12:51] LABS: BASO # 0.1 10*3/uL (0.0-0.1); BASO % 0.9 % (0.0-1.0); EOS # 0.2 10*3/uL (0.0-0.4); EOS % 2.2 % (1.0-4.0); HEMATOCRIT 45.2 % (42.0-52.0); HEMOGLOBIN 15.5 g/dl (14.0-18.0); LYMPH # 1.5 10*3/uL (1.3-4.4); LYMPH % 17.8 % (27.0-41.0); MEAN CELL VOLUME 95.8 fl (80.0-94.0); MEAN CORPUSCULAR HGB 32.8 pg (27.0-31.0); MEAN CORPUSCULAR HGB CONC 34.3 g/dl (33.0-37.0); MEAN PLATELET VOLUME 8.9 fl (9.6-12.3); MONO # 0.9 10*3/uL (0.1-1.0); MONO % 10.5 % (3.0-9.0); NEUT # 5.6 10*3/uL (2.3-7.9); NEUT % 68.1 % (47.0-73.0); PLATELET COUNT AUTOMATED 209 10*3/uL (130-400); RED BLOOD COUNT 4.72 10*6/uL (4.50-5.90); RED CELL DISTRI WIDTH 14.2 % (0-14.5); WHITE BLOOD COUNT 8.2 10*3/uL (4.8-10.8)
[2017-10-24 12:57] LABS: INTERNATIONAL NORM RATIO 0.9 (2.0-3.5)
[2017-10-24 13:05] LABS: ALBUMIN 3.7 gm/dl (3.1-4.5); ALKALINE PHOSPHATASE 89 U/L (45-117); BUN 17 mg/dl (7-24); CHLORIDE 105 mmol/L (98-107); POTASSIUM 3.4 mmol/L (3.5-5.1); SGOT/AST 20 IU/L (3-35); SGPT/ALT 28 U/L (12-78); SODIUM 142 mmol/L (136-145); TOTAL PROTEIN 7.7 gm/dL (6.4-8.2)
[2017-10-24 13:06] LABS: TROPONIN I < 0.015 ng/ml (<0.045)
== END 2017-10-24 16:17 | disposition home or self-care (01) ==
LOC: ED 12:04
PROVIDERS: Nurse Practitioner Family
DX: R60.0 Localized edema (principal); I10 Essential (primary) hypertension; E11.9 Type 2 diabetes mellitus without complications; E78.00 Pure hypercholesterolemia, unspecified; Z98.890 Other specified postprocedural states; Z79.899 Other long term (current) drug therapy

== ENCOUNTER 2018-01-12 15:25 | Emergency (ER) | payer MEDICARE, OTHER ==
[~2018-01-12] VITALS: Ht 170.1 cm; Wt 97.5 kg
[2018-01-12 16:48] LABS: BASO % 0.2 % (0.0-1.0); EOS % 0.1 % (1.0-4.0); HEMATOCRIT 42.8 % (42.0-52.0); HEMOGLOBIN 15.1 g/dl (14.0-18.0); LYMPH # 1.3 10*3/uL (1.3-4.4); LYMPH % 15.2 % (27.0-41.0); MEAN CORPUSCULAR HGB 32.5 pg (27.0-31.0); MEAN CORPUSCULAR HGB CONC 35.3 g/dl (33.0-37.0); MEAN PLATELET VOLUME 9.1 fl (9.6-12.3); MONO # 0.6 10*3/uL (0.1-1.0); MONO % 6.4 % (3.0-9.0); NEUT # 6.7 10*3/uL (2.3-7.9); NEUT % 77.9 % (47.0-73.0); PLATELET COUNT AUTOMATED 229 10*3/uL (130-400); RED BLOOD COUNT 4.65 10*6/uL (4.50-5.90); RED CELL DISTRI WIDTH 13.4 % (0-14.5); WHITE BLOOD COUNT 8.7 10*3/uL (4.8-10.8)
[2018-01-12 17:07] LABS: ALBUMIN 4.3 gm/dl (3.1-4.5); ALKALINE PHOSPHATASE 87 U/L (45-117); BUN 23 mg/dl (7-24); CHLORIDE 106 mmol/L (98-107); CREATININE 0.95 mg/dL (0.70-1.30); POTASSIUM 3.9 mmol/L (3.5-5.1); SGOT/AST 20 IU/L (3-35); SGPT/ALT 23 U/L (12-78); SODIUM 139 mmol/L (136-145); TOTAL PROTEIN 7.8 gm/dL (6.4-8.2)
[2018-01-12] MEDS ORDERED: PREDNISONE20 M1 PO (18:10)
[2018-01-12] MEDS ORDERED: DOXYCYCLINE100 M3 PO (18:10)
[2018-01-12] MEDS ORDERED: Bactroban Oint22 GM T (18:10)
== END 2018-01-12 18:30 | disposition home or self-care (01) ==
LOC: ED 15:25
PROVIDERS: Nurse Practitioner Family
DX: L25.9 Unspecified contact dermatitis, unspecified cause (principal); L03.113 Cellulitis of right upper limb; M10.9 Gout, unspecified; I11.0 Hypertensive heart disease with heart failure; I50.9 Heart failure, unspecified; E78.5 Hyperlipidemia, unspecified; E11.9 Type 2 diabetes mellitus without complications; Z79.4 Long term (current) use of insulin; Z79.899 Other long term (current) drug therapy

== ENCOUNTER 2018-08-13 13:33 | Inpatient (IN) | payer OTHER ==
[~2018-08-13] VITALS: Ht 167.6 cm; Wt 100.3 kg
--- NOTE | ~2018-08-13 | EKG ---
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
--- NOTE | ~2018-08-13 | EKG ---
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
--- NOTE | ~2018-08-13 | EKG ---
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
[~2018-08-13 13:33] MED LIST changes: +Bactroban Oint22 GM T; +DOXYCYCLINE100 M3 PO; -DRISDOL50000 IU PO; +PREDNISONE20 M1 PO; +VITAMIN D32000 UNI1 PO
[2018-08-13 13:38] VITALS: BP 175/71
[2018-08-13 13:50] VITALS: BP 163/63
[2018-08-13 13:53] LABS: BASO # 0.1 10*3/uL (0.0-0.1); BASO % 1.2 % (0.0-1.0); EOS # 0.2 10*3/uL (0.0-0.4); EOS % 3.1 % (1.0-4.0); HEMATOCRIT 46.3 % (42.0-52.0); HEMOGLOBIN 16.3 g/dl (14.0-18.0); LYMPH # 1.8 10*3/uL (1.3-4.4); LYMPH % 30.9 % (27.0-41.0); MEAN CELL VOLUME 94.5 fl (80.0-94.0); MEAN CORPUSCULAR HGB 33.3 pg (27.0-31.0); MEAN CORPUSCULAR HGB CONC 35.2 g/dl (33.0-37.0); MEAN PLATELET VOLUME 9.2 fl (9.6-12.3); MONO # 0.6 10*3/uL (0.1-1.0); MONO % 9.9 % (3.0-9.0); NEUT # 3.2 10*3/uL (2.3-7.9); NEUT % 54.2 % (47.0-73.0); PLATELET COUNT AUTOMATED 208 10*3/uL (130-400); RED CELL DISTRI WIDTH 13.6 % (0-14.5); WHITE BLOOD COUNT 5.8 10*3/uL (4.8-10.8)
[2018-08-13 14:09] LABS: ALBUMIN 3.9 gm/dl (3.1-4.5); ALKALINE PHOSPHATASE 90 U/L (45-117); BUN 24 mg/dl (7-24); CHLORIDE 107 mmol/L (98-107); CREATININE 0.96 mg/dL (0.70-1.30); LIPASE 148 U/L (73-393); POTASSIUM 3.9 mmol/L (3.5-5.1); SGOT/AST 22 IU/L (3-35); SGPT/ALT 31 U/L (12-78); SODIUM 141 mmol/L (136-145); TOTAL PROTEIN 7.7 gm/dL (6.4-8.2)
[2018-08-13 14:11] LABS: ACT PARTIAL THROMBO TIME 30.9 SECONDS (20.8-31.5)
[2018-08-13 14:14] LABS: TROPONIN I < 0.015 ng/ml (<0.045)
--- NOTE | 2018-08-13 14:32 | NUR ---
PT POSITIONED FOR COMFORT WITH FLUIDS PROVIDED INCREASED PAIN TO UPPER CHESTWALL WITH MOVEMENT & POSITIONING NOTED.PT STATING "I FELL FROM THE TRACTOR CUTTING GRASS LAST WEEK,BUT DIDN'T THINK I HURT MYSELF THEN". NO APPARENT INJURY AND NO RESP DIFFICULTIES NOTED.
[2018-08-13 14:38] LABS: BILIRUBIN NEGATIVE (NEGATIVE); BLOOD NEGATIVE (NEGATIVE); CLARITY CLEAR (CLEAR); COLOR YELLOW (YELLOW); GLUCOSE NEGATIVE (NEGATIVE); KETONE NEGATIVE (NEGATIVE); LEUKO ESTERASE NEGATIVE (NEGATIVE); NITRITE NEGATIVE (NEGATIVE); SPECIFIC GRAVITY <= 1.005 (1.005-1.030); UROBILINOGEN 0.2 E.U./dl (0.2-1.0)
[2018-08-13 14:46] LABS: EPITHELIAL CELLS 0-2
[2018-08-13 14:47] LABS: BACTERIA TRACE
[2018-08-13 15:06] VITALS: BP 139/68
--- NOTE | 2018-08-13 16:02 | NUR ---
PT TO HAVE FAMILY GET HIS MEDICATION LIST AND BRING IN.
[2018-08-13 16:03] VITALS: BP 147/66
[2018-08-13 16:30] VITALS: BP 168/78
[2018-08-13] MEDS ORDERED: CETIRIZINE10 MG PO (16:59)
[2018-08-13] MEDS ORDERED: ATARAX,VISTARIL10 MG PO (17:02)
[2018-08-13] MEDS ORDERED: MONTELUKAST SOD10 MG PO (17:05)
[2018-08-13] MEDS ORDERED: ZANTAC 150150 MG PO (17:06)
--- NOTE | 2018-08-13 17:46 | NUR ---
DR. QUAN NOTIFIED OF CONSULT.
[2018-08-13 20:00] VITALS: BP 151/61
--- NOTE | 2018-08-13 20:00 | NUR ---
PATIENT WITH NO COMPLAINTS OF CHEST PAIN AT THIS TIME. PATIENT DENIES SOB, NVD, AND FEVER/CHILLS. NO CONCERNS AT THIS TIME.
[2018-08-14] VITALS: BP 165/60
[2018-08-14 06:42] LABS: BASO # 0.1 10*3/uL (0.0-0.1); BASO % 0.9 % (0.0-1.0); EOS # 0.2 10*3/uL (0.0-0.4); EOS % 3.5 % (1.0-4.0); HEMATOCRIT 44.6 % (42.0-52.0); HEMOGLOBIN 15.8 g/dl (14.0-18.0); LYMPH # 2.1 10*3/uL (1.3-4.4); LYMPH % 32.2 % (27.0-41.0); MEAN CELL VOLUME 94.3 fl (80.0-94.0); MEAN CORPUSCULAR HGB 33.4 pg (27.0-31.0); MEAN CORPUSCULAR HGB CONC 35.4 g/dl (33.0-37.0); MEAN PLATELET VOLUME 9.4 fl (9.6-12.3); MONO # 0.7 10*3/uL (0.1-1.0); MONO % 10.7 % (3.0-9.0); NEUT # 3.5 10*3/uL (2.3-7.9); NEUT % 52.4 % (47.0-73.0); PLATELET COUNT AUTOMATED 207 10*3/uL (130-400); RED BLOOD COUNT 4.73 10*6/uL (4.50-5.90); RED CELL DISTRI WIDTH 13.4 % (0-14.5); WHITE BLOOD COUNT 6.6 10*3/uL (4.8-10.8)
[2018-08-14 06:43] LABS: ALBUMIN 3.7 gm/dl (3.1-4.5); BUN 20 mg/dl (7-24); CHLORIDE 104 mmol/L (98-107); CHOLESTEROL 166 mg/dL (<200); CREATININE 0.85 mg/dL (0.70-1.30); POTASSIUM 3.6 mmol/L (3.5-5.1); SGOT/AST 23 IU/L (3-35); SGPT/ALT 29 U/L (12-78); SODIUM 137 mmol/L (136-145); TOTAL PROTEIN 7.2 gm/dL (6.4-8.2)
[2018-08-14 06:50] LABS: ALKALINE PHOSPHATASE 77 U/L (45-117); FREE T4 0.82 ng/dl (0.76-1.46); HDL CHOLESTEROL 46 mg/dl (40-60); LDL CHOLESTEROL 73 mg/dL (9-159); PHOSPHOROUS 3.2 mg/dL (2.5-4.9); TRIGLYCERIDES 237 mg/dl (<150); VLDL CHOLESTEROL 47 mg/dL (6-40)
[2018-08-14 08:00] VITALS: BP 132/72
--- NOTE | 2018-08-14 09:00 | NUR ---
Scaffold Erector in to talk to patient. Patient states lives at home with . There are few steps in the home. Physician: rosalinda cruz Pharmacy: [facility] Home health services: none Patient's level of ADLs: INDEPENDENT Patient has working utilities: all working DME: cane/cpap Follow-up physician's appointment after d/c: will be made by hospitalist nurse director upon discharge Does patient want to access PORTAL?: no Discharge plan discussed with patient, patient lives at home. states he gets around fine, is independent in adls, patient states he will be going home when able and denies any home needs. ZANDRA ROJAS
[2018-08-14 12:00] VITALS: BP 139/50
--- NOTE | 2018-08-14 12:50 | NUR ---
case management contacted [facility], patient's inforamtion given, volunteer coordinator stated she would forward this information to the case repairer at [facility]
[2018-08-14 16:00] VITALS: BP 123/79; BP 151/66
[2018-08-14 20:00] VITALS: BP 135/65
[2018-08-15] VITALS: BP 131/65
[2018-08-15 08:00] VITALS: BP 144/48
[2018-08-15] MEDS ORDERED: NORVASC5 MG PO (10:48)
--- NOTE | 2018-08-15 11:00 | NUR ---
PATIENT DISCHARGED TO HOME. ALL PERSONAL BELONGINGS SENT WITH PATIENT. IV AND PATIENT TRANSPORT OFFICER DISCONTINUED. DISCHARGE INSTRUCTIONS GIVEN AND REVIEWED WITH PATIENT. PATIENT INFORMED TO FOLLOW UP WITHIN ONE WEEK. INFORMED PRESCRIPTION SENT TO [facility].
== END 2018-08-15 11:02 | disposition home or self-care (01) | DRG 206 ==
LOC: ED 13:33 → 4E 16:04
PROVIDERS: Emergency Medicine; Registered Nurse; ADMIT Internal Medicine
DX: M94.0 Chondrocostal junction syndrome [Tietze] (principal); N40.0 Benign prostatic hyperplasia without lower urinary tract symptoms; N18.9 Chronic kidney disease, unspecified; I12.9 Hypertensive chronic kidney disease with stage 1 through stage 4 chronic kidney disease, or unspecified chronic kidney disease; M10.9 Gout, unspecified; E78.5 Hyperlipidemia, unspecified; E03.9 Hypothyroidism, unspecified; M54.16 Radiculopathy, lumbar region; G47.33 Obstructive sleep apnea (adult) (pediatric); E55.9 Vitamin D deficiency, unspecified; R73.9 Hyperglycemia, unspecified; E66.9 Obesity, unspecified; Z86.73 Personal history of transient ischemic attack (TIA), and cerebral infarction without residual deficits; Z72.89 Other problems related to lifestyle; Z83.6 Family history of other diseases of the respiratory system; Z82.49 Family history of ischemic heart disease and other diseases of the circulatory system; Z79.4 Long term (current) use of insulin; Z79.899 Other long term (current) drug therapy; Z68.35 Body mass index [BMI] 35.0-35.9, adult

== ENCOUNTER 2018-09-19 11:19 | Inpatient (IN) | payer OTHER ==
[~2018-09-19] VITALS: Ht 167.6 cm; Wt 100.9 kg
--- NOTE | ~2018-09-19 | EKG ---
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 Service Technician: : 1950 Requested By: VALERIY PEREZ Order Number: [id number] Reading MD: Leilani Pineda Measurements Intervals [place] Rate: 69 P: 41 AL: 155 QRS: -51 QRSD: 120 T: 102 QT: 399 QTc: 428 Interpretive Statements Sinus rhythm LVH with IVCD, LAD and secondary repol abnrm Baseline wander in lead(s) V4,V5,V6 Compared to ECG 08/13/2018 19:53:15 Intraventricular conduction delay now present Left anterior fascicular block no longer present Right ventricular hypertrophy no longer present Electronically Signed On 09-21-2018 11:54:00 PDT by Leilani Pineda CM:EKGRPT:ELECTROCARDIOGRAM REPORT [id number] VALERIY PHILLIPS DRAFT REPORT VALERIY PEREZ M.D.
--- NOTE | ~2018-09-19 | EKG ---
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: RTK : 1950 Requested By: VALERIY PEREZ Order Number: [id number] Reading MD: Leilani Pineda Measurements Intervals [place] Rate: 70 P: 52 SC: 158 QRS: -50 QRSD: 119 T: 110 QT: 407 QTc: 440 Interpretive Statements Sinus rhythm LVH with IVCD, LAD and secondary repol abnrm Compared to ECG 08/13/2018 19:53:15 Intraventricular conduction delay now present Left anterior fascicular block no longer present Right ventricular hypertrophy no longer present Electronically Signed On 09-21-2018 11:53:21 PDT by Leilani Pineda CM:EKGRPT:ELECTROCARDIOGRAM REPORT [id number] [id number] VALERIY PHILLIPS DRAFT REPORT VALERIY PEREZ M.D.
--- NOTE | ~2018-09-19 | EKG ---
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: Joy Pedraza : 1950 Requested By: VALERIY PEREZ Order Number: [id number] Reading MD: Leilani Pineda Measurements Intervals [place] Rate: 69 P: 57 UT: 151 QRS: -51 QRSD: 117 T: 110 QT: 407 QTc: 436 Interpretive Statements Sinus rhythm LVH with IVCD, LAD and secondary repol abnrm Compared to ECG 08/13/2018 19:53:15 Intraventricular conduction delay now present Left anterior fascicular block no longer present Right ventricular hypertrophy no longer present Electronically Signed On 09-21-2018 11:53:39 PDT by Leilani Pineda CM:EKGRPT:ELECTROCARDIOGRAM REPORT [id number] VALERIY PHILLIPS DRAFT REPORT VALERIY PEREZ M.D.
--- NOTE | ~2018-09-19 | CON ---
[place], [place] REPORT OF CONSULTATION NAME: KEON THOMAS UNIT #: [id number] ROOM: 426 DOCTOR: ZACKARY THAYER MD BIRTHDATE: [birth year] DOS: 09/20/2018 CARDIOLOGY CONSULT REASON FOR CONSULTATION: Chest pain. HISTORY OF PRESENT ILLNESS: The patient is a 67-year-old gentleman with history of hypertension, chronic kidney disease, non-morbid obesity. At the present time, the patient denies any further chest pain, it lasted about 24 hours. His pain is substernal pain, came at rest. This pain has some radiation towards his back and the pain gets worse with turning and rotating and pain is reproducible with palpation. He had a similar episode of chest pain about a month ago and discharged home without any testing since his chest pain was atypical. Again, this pain resolves on its own. No associated nausea, diaphoresis, or dizziness. Denies any palpitations. No PND, no orthopnea, no fever and chills. No bladder or bowel symptoms, no genitourinary symptoms, no neurologic symptoms. The patient did have some pain in the ankle. Cardiology consulted for any further recommendations. REVIEW OF SYSTEMS: Review of 10 systems negative except as mentioned above. PAST MEDICAL HISTORY: 1. Hypertension. 2. Chronic kidney disease. 3. Edema. 4. GERD. 5. History of CVA. 6. Dyslipidemia. 7. Hypothyroidism. 8. Sleep apnea. 9. Vertigo. 10. Benign prostatic hypertrophy. 11. Back pain. 12. Gout. PAST SURGICAL HISTORY: History of neck surgery. SOCIAL HISTORY: The patient does drink alcohol, does not smoke, does not use illicit drugs. FAMILY HISTORY: Father from emphysema of the lung. Mother from heart attack. ALLERGIES: Reviewed. HOME MEDICATIONS: Reviewed. PHYSICAL EXAMINATION: VITAL SIGNS: Blood pressure 127/49 and 156/62, last 2 readings; heart rate 59; respiratory rate is 18; weight 100.9 kg, BMI 35.9. [place], [place] REPORT OF CONSULTATION NAME: KEON THOMAS UNIT #: [id number] ROOM: 426 DOCTOR: ZACKARY THAYER MD BIRTHDATE: [birth year] GENERAL: Alert, comfortable, in no acute distress. HEAD AND NECK: Pupils are round and equal. No jaundice. Tongue was moist and pharynx clear. Neck is supple. No distended neck veins, no carotid bruit. CHEST: Symmetrical. Mild tenderness on pressure in the midsternal area. HEART: Regular rhythm. No S3, no palpable thrills. LUNGS: Clear to auscultation bilaterally. ABDOMEN: Benign, nontender. Bowel sounds normal. EXTREMITIES: The patient had left ankle swelling. Distal pulses palpable. SKIN: Warm and dry. No cyanosis, no clubbing. RECTAL: Deferred. PSYCHIATRIC: The patient is alert with good mood and affect. REVIEW OF THE DIAGNOSTIC TESTS: EKG, labs, and imaging studies reviewed. EKG, normal sinus rhythm with LV hypertrophy. Cardiac troponins are negative. IMPRESSION: 1. Chest pain, atypical, myocardial infarction ruled out. 2. Mild sinus bradycardia, asymptomatic. 3. Hypertension. 4. Chronic kidney disease. 5. Sleep apnea. 6. History of cerebrovascular accident. 7. Non-morbid obesity. RECOMMENDATIONS: 1. The patient denies any further chest pains. 2. The patient wished to be a DNR-CCA status and does not wish any further cardiac testing. 3. Avoid any AV blocking medications due to his borderline sinus bradycardia. 4. The patient can be discharged home from the cardiac standpoint since he is not doing any further testing and his chest pain is atypical. 5. No family at bedside at the time of examination. ZACKARY THAYER MD CM:CONSTR:REPORT OF CONSULTATION 18 09/21/181907 interface
[~2018-09-19 11:19] MED LIST changes: +ATARAX,VISTARIL10 MG PO; +CETIRIZINE10 MG PO; +MONTELUKAST SOD10 MG PO; +ZANTAC 150150 MG PO
[2018-09-19 11:28] VITALS: BP 149/68
[2018-09-19 11:38] LABS: BASO % 0.4 % (0.0-1.0); EOS # 0.2 10*3/uL (0.0-0.4); EOS % 2.7 % (1.0-4.0); HEMATOCRIT 43.3 % (42.0-52.0); HEMOGLOBIN 15.6 g/dl (14.0-18.0); LYMPH # 1.4 10*3/uL (1.3-4.4); LYMPH % 18.2 % (27.0-41.0); MEAN CELL VOLUME 94.1 fl (80.0-94.0); MEAN CORPUSCULAR HGB 33.9 pg (27.0-31.0); MEAN PLATELET VOLUME 8.9 fl (9.6-12.3); MONO # 0.8 10*3/uL (0.1-1.0); MONO % 9.9 % (3.0-9.0); NEUT # 5.4 10*3/uL (2.3-7.9); NEUT % 68.5 % (47.0-73.0); PLATELET COUNT AUTOMATED 195 10*3/uL (130-400); RED CELL DISTRI WIDTH 13.4 % (0-14.5); WHITE BLOOD COUNT 7.8 10*3/uL (4.8-10.8)
[2018-09-19 11:50] LABS: ACT PARTIAL THROMBO TIME 35.1 SECONDS (20.0-32.1); INTERNATIONAL NORM RATIO 0.9 (2.0-3.5)
[2018-09-19 11:54] LABS: ALBUMIN 3.9 gm/dl (3.1-4.5); ALKALINE PHOSPHATASE 86 U/L (45-117); BUN 22 mg/dl (7-24); CHLORIDE 105 mmol/L (98-107); POTASSIUM 3.5 mmol/L (3.5-5.1); SGOT/AST 24 IU/L (3-35); SGPT/ALT 28 U/L (12-78); SODIUM 140 mmol/L (136-145); TOTAL PROTEIN 7.6 gm/dL (6.4-8.2)
[2018-09-19 11:59] LABS: TROPONIN I < 0.015 ng/ml (<0.045)
--- NOTE | 2018-09-19 12:16 | NUR ---
PATIENT TO RESTROOM AT THIS TIME PER PATIENT REQUEST.
[2018-09-19 13:48] VITALS: BP 141/67
--- NOTE | 2018-09-19 14:28 | NUR ---
PATIENT TRANSFERRED TO 4TH FLOOR VIA WHEELCHAIR AT PATIENT REQUEST WITH CONTINUOUS ECG MONITORING.
[2018-09-19 14:31] VITALS: BP 138/76
--- NOTE | 2018-09-19 14:31 | NUR ---
A 67, admitted to 4E, under the services of SCOUT Beverly DO with a diagnosis of CHEST PAIN. Chief complaint is CHEST PAIN. Patient arrived via wheel chair from ER. Monitor applied. Initial assessment completed. Vital signs taken and recorded. SCOUT BEVERLY DO notified of admission to the unit. Orders received. See assessment for past medical history, medications and allergies. Patient and/or family oriented to unit. visitation policy reviewed. Clothing/patient valuable form completed. JAG LOPEZ
--- NOTE | 2018-09-19 17:08 | NUR ---
CALL PLACED TO DR SHAH TO ADVISE THAT PATIENT WANTS TO BE RESUSITATED AFTER CLARIFYING WHAT EXACTLY WANTS HE IS BEING MONITORED, AFTER EXPLAINING PATIENT WANTS TO BE DNRCCA, ORDER RECIEVED TO CHANGE CODE STATUS.
--- NOTE | 2018-09-19 17:22 | NUR ---
PATIENT C/O OF LEFT ANKLE PAIN 5/10, MEDICATED WITH TYLENOL 650MG ORDERED, WILL CONTINUE TO MONITOR.
--- NOTE | 2018-09-19 18:24 | NUR ---
FOLLOW UP ON TYLENOL GIVEN, PATIENT STATES "IT WAS VERY HELPFUL" RATES PAIN 0/10
--- NOTE | 2018-09-19 19:00 | NUR ---
PT AWAKE IN BED DURING BEDSIDE SHIFT REPORT. NO C/O VOICED. BROTHER IN VISITING. CALL LIGHT IN REACH.
[2018-09-19 20:00] VITALS: BP 142/61
--- NOTE | 2018-09-19 20:45 | NUR ---
DR. CAM NOTIFIED OF PT HOME MEDS NEED REORDERED. TO LOOK AT HOME MEDS.
--- NOTE | 2018-09-19 21:54 | NUR ---
PT MEDICATED W/TYLENOL FOR C/O BILATERAL FLANK PAIN 07/30. DESCRIBES ACHEY. PT DENIES DYSURIA/BURNING/FREQUENCY. CALL LIGHT IN REACH.
--- NOTE | 2018-09-19 22:56 | NUR ---
24 HR chart check completed.
--- NOTE | 2018-09-19 23:00 | NUR ---
PT STATES THAT TYLENOL WAS EFFECTIVE FOR PAIN RELIEF.
[2018-09-20] VITALS: BP 127/49
[2018-09-20 06:09] LABS: BASO # 0.1 10*3/uL (0.0-0.1); BASO % 0.7 % (0.0-1.0); EOS # 0.2 10*3/uL (0.0-0.4); EOS % 3.5 % (1.0-4.0); HEMATOCRIT 41.3 % (42.0-52.0); HEMOGLOBIN 14.6 g/dl (14.0-18.0); LYMPH # 1.6 10*3/uL (1.3-4.4); LYMPH % 24.1 % (27.0-41.0); MEAN CELL VOLUME 94.1 fl (80.0-94.0); MEAN CORPUSCULAR HGB 33.3 pg (27.0-31.0); MEAN CORPUSCULAR HGB CONC 35.4 g/dl (33.0-37.0); MEAN PLATELET VOLUME 9.2 fl (9.6-12.3); MONO # 0.9 10*3/uL (0.1-1.0); MONO % 12.5 % (3.0-9.0); NEUT % 58.9 % (47.0-73.0); PLATELET COUNT AUTOMATED 189 10*3/uL (130-400); RED BLOOD COUNT 4.39 10*6/uL (4.50-5.90); RED CELL DISTRI WIDTH 13.3 % (0-14.5); WHITE BLOOD COUNT 6.8 10*3/uL (4.8-10.8)
[2018-09-20 06:29] LABS: BUN 19 mg/dl (7-24); CHLORIDE 105 mmol/L (98-107); CHOLESTEROL 151 mg/dL (<200); CREATININE 0.86 mg/dL (0.70-1.30); HDL CHOLESTEROL 49 mg/dl (40-60); LDL CHOLESTEROL 79 mg/dL (9-159); POTASSIUM 3.4 mmol/L (3.5-5.1); SODIUM 139 mmol/L (136-145); TRIGLYCERIDES 117 mg/dl (<150); VLDL CHOLESTEROL 23 mg/dL (6-40)
[2018-09-20 06:43] LABS: ACT PARTIAL THROMBO TIME 35.9 SECONDS (20.0-32.1); INTERNATIONAL NORM RATIO 0.9 (2.0-3.5)
--- NOTE | 2018-09-20 07:21 | NUR ---
DR. AU NOTIFIED OF PT'S C/O BILATERAL FLANK PAIN W/DARK URINE. OK FOR UA TO UC.
[2018-09-20 07:40] LABS: VITAMIN D, 25-HYDROXY 38.3 ng/mL (30-100)
[2018-09-20 08:00] VITALS: BP 156/82
[2018-09-20 08:15] LABS: BILIRUBIN NEGATIVE (NEGATIVE); BLOOD NEGATIVE (NEGATIVE); CLARITY CLEAR (CLEAR); COLOR YELLOW (YELLOW); GLUCOSE NEGATIVE (NEGATIVE); KETONE NEGATIVE (NEGATIVE); LEUKO ESTERASE NEGATIVE (NEGATIVE); NITRITE NEGATIVE (NEGATIVE); PH 5.5 (5.0-9.0); UROBILINOGEN 0.2 E.U./dl (0.2-1.0)
[2018-09-20 08:33] LABS: RBC 0-2 rbc/hpf (0-2); WBC 0-2 wbc/hpf (0-5)
--- NOTE | 2018-09-20 09:00 | NUR ---
PHYSICAL THERAPY PT EVAL ONLY COMPLETED 09/20/18: EVAL TO FOLLOW. AT THIS TIME HE IS UP AD RUDY IN ROOM AND REFUSING STAIRS. ON EVAL HE WAS ABLE TOCOMPLETE ALL FUNCTIONAL MOBILITY WTIH MOD (I) TO (I) AND STATES HE IS NOT UP TO ATTEMPTING STAIRS. PT EVAL IS MOD COMPLEXITY BASED ON CAHRT REVIEW , TEST RESULTS AND EVAL: [id number]. RECOMMEND HOME WITH BROTHER ON D/C. THANK YOU FOR REFERRAL [facility] PT
--- NOTE | 2018-09-20 14:35 | NUR ---
Discharge instructions reviewed with patient/family. Patient receptive and verbalizes understanding. Follow-up care arranged. Written instructions given to patient/family. WENT OVER DISCHARGE PACKET WITH PATIENT, IV REMOVED PATIENT TOLERATED WELL. HEART MONITOR REMOVED, AND PLACED IN NURSES STATION. PATIENT STATED HE WILL CALL AND MAKE AN APPOINTMENT TO FOLLOW UP WITH [facility] IN ONE TO TWO WEEKS. PATIENT ACCOMPANIED TO CAR VIA WHEELCHAIR BY FAMILY AND STAFF AT THIS TIME. VANESSA DAMON E
--- NOTE | 2018-09-22 06:52 | NUR ---
PHYSICAL THERAPY Nursing screen received. Patient discharged. Thank you. Paula Reyez,PT
== END 2018-09-20 14:35 | disposition home or self-care (01) | DRG 313 ==
LOC: ED 11:19 → EDHOLD 13:14 → 4E 13:47
PROVIDERS: Emergency Medicine; Internal Medicine; ADMIT Internal Medicine
DX: R07.89 Other chest pain (principal); E78.00 Pure hypercholesterolemia, unspecified; I12.9 Hypertensive chronic kidney disease with stage 1 through stage 4 chronic kidney disease, or unspecified chronic kidney disease; E78.5 Hyperlipidemia, unspecified; M1A.9XX0 Chronic gout, unspecified, without tophus (tophi); R00.1 Bradycardia, unspecified; E03.9 Hypothyroidism, unspecified; E66.8 Other obesity; R73.9 Hyperglycemia, unspecified; N40.0 Benign prostatic hyperplasia without lower urinary tract symptoms; N18.3 Chronic kidney disease, stage 3 (moderate); G47.33 Obstructive sleep apnea (adult) (pediatric); Z86.73 Personal history of transient ischemic attack (TIA), and cerebral infarction without residual deficits; Z82.49 Family history of ischemic heart disease and other diseases of the circulatory system; Z83.6 Family history of other diseases of the respiratory system; Z79.899 Other long term (current) drug therapy; Z68.36 Body mass index [BMI] 36.0-36.9, adult

== ENCOUNTER 2019-06-11 09:24 | Emergency (ER) | payer OTHER ==
[2019-06-11 10:29] LABS: BASO # 0.1 10*3/uL (0.0-0.1); BASO % 0.9 % (0.0-1.0); EOS # 0.3 10*3/uL (0.0-0.4); EOS % 3.5 % (1.0-4.0); HEMATOCRIT 46.5 % (42.0-52.0); HEMOGLOBIN 16.6 g/dl (14.0-18.0); LYMPH # 2.1 10*3/uL (1.3-4.4); LYMPH % 26.4 % (27.0-41.0); MEAN CELL VOLUME 92.4 fl (80.0-94.0); MEAN CORPUSCULAR HGB CONC 35.7 g/dl (33.0-37.0); MEAN PLATELET VOLUME 9.1 fl (9.6-12.3); MONO # 0.7 10*3/uL (0.1-1.0); MONO % 9.3 % (3.0-9.0); NEUT # 4.6 10*3/uL (2.3-7.9); NEUT % 59.4 % (47.0-73.0); PLATELET COUNT AUTOMATED 227 10*3/uL (130-400); RED BLOOD COUNT 5.03 10*6/uL (4.50-5.90); RED CELL DISTRI WIDTH 13.3 % (0-14.5); WHITE BLOOD COUNT 7.8 10*3/uL (4.8-10.8)
[2019-06-11 10:43] LABS: BUN 17 mg/dl (7-24); CHLORIDE 103 mmol/L (98-107); CREATININE 1.12 mg/dL (0.70-1.30); POTASSIUM 3.7 mmol/L (3.5-5.1); SODIUM 138 mmol/L (136-145); URIC ACID 7.3 mg/dL (3.5-7.2)
== END 2019-06-11 11:40 | disposition home or self-care (01) ==
LOC: ED 09:24
PROVIDERS: Emergency Medicine
DX: M79.642 Pain in left hand (principal); M25.532 Pain in left wrist; R05 Cough; I13.0 Hypertensive heart and chronic kidney disease with heart failure and stage 1 through stage 4 chronic kidney disease, or unspecified chronic kidney disease; E11.22 Type 2 diabetes mellitus with diabetic chronic kidney disease; N18.9 Chronic kidney disease, unspecified; I50.9 Heart failure, unspecified; I25.10 Atherosclerotic heart disease of native coronary artery without angina pectoris; E03.9 Hypothyroidism, unspecified; E78.00 Pure hypercholesterolemia, unspecified; E11.40 Type 2 diabetes mellitus with diabetic neuropathy, unspecified; Z88.8 Allergy status to other drugs, medicaments and biological substances; Z79.899 Other long term (current) drug therapy; Z86.73 Personal history of transient ischemic attack (TIA), and cerebral infarction without residual deficits